=== PATIENT | female | born 1965 | race Two or more races ===

== ENCOUNTER 2025-07-23 12:14 | Emergency (ER) | payer MEDICAID, OTHER ==
[~2025-07-23] VITALS: Ht 170.2 cm; Wt 104.3 kg
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
[2025-07-23] MEDS: ACETAMINOPHEN 500 MG TAB or CAP PO ONE (14:01)
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
[2025-07-23 14:33] VITALS: BP 129/59; PULSE 105; RESP 18; TEMP 97.5; O2SAT 96
[2025-07-23] MEDS ORDERED: ACET-1080 PO (14:39)
[2025-07-23] MEDS ORDERED: METH-1182 PO (14:39)
== END 2025-07-23 14:43 | disposition home or self-care (01) ==
LOC: EDBD 12:14 → ER 12:14
DX: S16.1XXA Strain of muscle, fascia and tendon at neck level, initial encounter (principal); S29.011A Strain of muscle and tendon of front wall of thorax, initial encounter; S39.012A Strain of muscle, fascia and tendon of lower back, initial encounter; M79.601 Pain in right arm; V89.2XXA Person injured in unspecified motor-vehicle accident, traffic, initial encounter; Y93.I9 Activity, other involving external motion; Y92.488 Other paved roadways as the place of occurrence of the external cause; Y99.8 Other external cause status
CPT/HCPCS: 71101; 72040; 72100; 73060